=== PATIENT | male | born 1965 | race Caucasian/White ===

== ENCOUNTER 2018-12-11 14:54 | Emergency (ER) | payer OTHER ==
[2018-12-11 14:57] VITALS: BP 152/81; PULSE 73; RESP 20; TEMP 99; O2SAT 99
--- NOTE | 2018-12-11 15:55 | C.PDOC ---
History Of Present Illness 53 year old male presents to the ED complaining of left elbow pain for 2 months. 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 Reports he is also left handed. Denies any injuries/trauma, weakness, numbness, paresthesia, tingling sensation, or any other complaints. States he tried OTC medications with no relief. Chief Complaint (Nursing): Upper Extremity Problem/Injury History Per: Patient History/Exam Limitations: no limitations Onset/Duration Of Symptoms: Days Current Symptoms Are (Timing): Still Present Quality: "Pain" Past Medical History Reviewed: Historical Data, Nursing Documentation, Vital Signs Vital Signs: Last Vital Signs Temp 99 F 12/11/18 14:56 Pulse 73 12/11/18 14:56 Resp 20 12/11/18 14:56 BP 152/81 H 12/11/18 14:56 Pulse Ox 99 12/11/18 14:56 - Medical History PMH: No Chronic Diseases Surgical History: No Surg Hx Family History: States: No Known Family Hx - Social History Hx Alcohol Use: No Hx Substance Use: No - Immunization History Hx Tetanus Toxoid Vaccination: No Hx Influenza Vaccination: No Hx Pneumococcal Vaccination: No Review Of Systems Constitutional: Negative for: Fever, Chills, Weakness Cardiovascular: Negative for: Chest Pain Respiratory: Negative for: Cough, Shortness of Breath Gastrointestinal: Negative for: Nausea, Vomiting, Abdominal Pain, Diarrhea Musculoskeletal: Positive for: Other (left elbow pain ). Negative for: Back Pain Neurological: Negative for: Weakness, Numbness, Other (paresthesia ) Physical Exam - Physical Exam Appears: Non-toxic, No Acute Distress Skin: Warm, Dry, No Rash Head: Normacephalic Eye(s): bilateral: PERRL, EOMI Oral Mucosa: Moist Neck: Trachea Midline, Supple Chest: Symmetrical Cardiovascular: Rhythm Regular Respiratory: No Rales, No Rhonchi, No Wheezing Extremity: Tenderness (lateral left elbow ), Capillary Refill (less than 2 sec to left elbow ), No Deformity, No Swelling, Other (neurovascular intact ) Extremity: Bilateral: Normal Color And Temperature, Normal ROM Pulses: Left Radial: Normal, Right Radial: Normal Neurological/Psych: Oriented x3, Normal Speech, Normal Motor, Normal Sensation Gait: Steady ED Course And Treatment O2 Sat by Pulse Oximetry: 99 (RA) Pulse Ox Interpretation: Normal - Other Rad XR left elbow X-Ray: Viewed By Me, Read By Radiologist Interpretation: Left elbow three views. History: Elbow pain. COMPARISON: None available. Findings: Osteophyte formation at the posterior olecranon. Mild spurring of the coronoid process. No significant elbow joint effusion. No evidence of acute displaced fracture or dislocation. Impression: Degenerative changes. If pain persists, consider correlation with MRI. Medical Decision Making Medical Decision Making: Plan - Motrin 600mg PO Patient instructed to continue Motrin as needed. Given follow up instructions. Instructed to return to the ED if symptoms worsen or persist. Patient verbalizes understanding and is in agreement with plan. Patient is stable for discharge. Disposition Counseled Patient/Family Regarding: Studies Performed, Diagnosis, Need For Followup, Rx Given - Disposition Referrals: Li Leon MD [Staff Provider] - Disposition: HOME/ ROUTINE Disposition Time: 15:55 Condition: STABLE Additional Instructions: Continue Motrin as needed fo rpain Recommend over the counter icy/hot or lidoderm patches rest an elevation follow up with ortho for possible MRI Return to ED if symptoms worsen Prescriptions: Ibuprofen [Motrin] 600 mg PO TID PRN #30 tab PRN Reason: Pain, Moderate (4-7) Instructions: Lateral Epicondylitis (DC) Forms: [employer] (Thai) - Clinical Impression Clinical Impression: Elbow pain - PA / DIRECTOR TRANSLATIONAL / Resident Statement MD/DO has reviewed & agrees with the documentation as recorded. - Scribe Statement The provider has reviewed the documentation as recorded by the Princeibmikey Knapp All medical record entries made by the Scribe were at my direction and personally dictated by me. I have reviewed the chart and agree that the record accurately reflects my personal performance of the history, physical exam, medical decision making, and the department course for this patient. I have also personally directed, reviewed, and agree with the discharge instructions and disposition.
--- NOTE | 2018-12-11 16:03 | RAD ---
Left elbow three views History: Elbow pain. COMPARISON: None available. Findings: Osteophyte formation at the posterior olecranon. Mild spurring of the coronoid process. No significant elbow joint effusion. No evidence of acute displaced fracture or dislocation. Impression: Degenerative changes. If pain persists, consider correlation with MRI.
== END 2018-12-11 16:16 | disposition home or self-care (01) ==
LOC: C.ER 14:54
DX: M25.522 Pain in left elbow (principal)